=== PATIENT | male | born 1980 | race Two or more races ===

== ENCOUNTER → 2017-01-09 | Outpatient (CLI) | payer OTHER ==
[~2017-01-09] MED LIST: CONC36TA4 PO; CYCL10TA PO
== END ==
LOC: M SMT 08:43
PROVIDERS: ATTEND Nurse Practitioner Women's Health
DX: R68.82 Decreased libido (principal)

== ENCOUNTER 2017-12-02 20:33 | Emergency (ER) | payer OTHER ==
[2017-12-02] MEDS: MORPHINE 4 MG/ML 1ML VIAL/SYRINGE (J2270) IV ×2 (21:21→21:56)
[2017-12-02] MEDS: ONDANSETRON 4MG/2ML VIAL (J2405) IV (21:22)
[2017-12-02] MEDS: NS 1,000 ML IV (21:22)
[2017-12-02 21:34] LABS: BASO % 0.2 % (0.0-1.0); HEMATOCRIT 43.6 % (42.0-52.0); HEMOGLOBIN 15.2 g/dl (13.5-17.5); IMMATURE GRANULOCYTE % 0.3 % (0-3.0); LYMPH # 1.4 10^3/uL (1.5-4.5); LYMPH % 11.6 % (24.0-44.0); MEAN CORPUSCULAR HEMOGLOBIN 32.1 pg (27.0-33.0); MEAN CORPUSCULAR HGB CONC 34.9 g/dl (32.0-36.5); MEAN CORPUSCULAR VOLUME 92.2 fl (80.0-96.0); MONO # 0.4 10^3/uL (0.0-0.8); NEUTROPHILS # 10.3 10^3/uL (1.8-7.7); NEUTROPHILS % 84.9 % (36.0-66.0); PLATELET COUNT, AUTOMATED 307 10^3/uL (150-450); RED BLOOD COUNT 4.73 10^6/uL (4.30-6.10); RED CELL DISTRIBUTION WIDTH 11.8 % (11.5-14.5); WHITE BLOOD COUNT 12.1 10^3/uL (4.0-10.0)
[2017-12-02 21:56] LABS: ALBUMIN 4.5 GM/DL (3.2-5.2); ALBUMIN/GLOBULIN RATIO 1.25 (1.00-1.93); ALKALINE PHOSPHATASE 69 U/L (45-117); ALT/SGPT 34 U/L (12-78); AMYLASE 64 U/L (25-115); ANION GAP 8 MEQ/L (8-16); AST/SGOT 23 U/L (7-37); BILIRUBIN,DIRECT 0.1 MG/DL (0.0-0.2); BILIRUBIN,TOTAL 0.6 MG/DL (0.2-1.0); BLOOD UREA NITROGEN 16 MG/DL (7-18); CARBON DIOXIDE LEVEL 22 MEQ/L (21-32); CHLORIDE LEVEL 110 MEQ/L (98-107); CREATININE FOR GFR 1.69 MG/DL (0.70-1.30); GLOMERULAR FILTRATION RATE 48.6 (>60); GLUCOSE, FASTING 113 MG/DL (70-100); LIPASE 103 U/L (73-393); SODIUM LEVEL 140 MEQ/L (136-145); TOTAL PROTEIN 8.1 GM/DL (6.4-8.2)
[2017-12-02 22:41] LABS: AMORPHOUS SEDIMENT RFX LARGE (NEGATIVE); KETONE, URINE AUTO RFX TRACE mg/dL (NEGATIVE); LEUKOCYTE ESTERASE UR AUTO RFX NEGATIVE (NEGATIVE); MUCUS, URINE RFX SMALL (NEGATIVE); NITRITE, URINE AUTO RFX NEGATIVE (NEGATIVE); RBC, URINE AUTO RFX 90 /HPF (0-3); SPECIFIC GRAVITY UR AUTO RFX 1.013 (1.002-1.035); SQUAM EPITHELIAL CELL UR AURFX 0 /HPF (0-6); WBC, URINE AUTO RFX 3 /HPF (0-3)
[2017-12-02] MEDS: NORCO 5/325MG TABLET (BULK FOR ED) PO (23:03)
[2017-12-02] MEDS: TAMSULOSIN 0.4 MG CAP PO (23:04)
[2017-12-03] MEDS ORDERED: PROPOFOL 200 MG/20 ML VIAL As Ordered (08:11)
== END 2017-12-02 23:06 | disposition home or self-care (01) ==
LOC: M ED 20:33
DX: N20.1 Calculus of ureter (principal); I10 Essential (primary) hypertension; F33.9 Major depressive disorder, recurrent, unspecified; Z79.899 Other long term (current) drug therapy; Z88.8 Allergy status to other drugs, medicaments and biological substances; Z87.891 Personal history of nicotine dependence
CPT/HCPCS: J2270

== ENCOUNTER → 2017-12-09 | Outpatient (CLI) | payer OTHER | LOC: M RAD 15:19 | DX: M54.6 Pain in thoracic spine (principal) | CPT/HCPCS: 72128 ==

== ENCOUNTER 2017-12-13 20:13 | Emergency (ER) | payer OTHER ==
[2017-12-13 21:15] LABS: AMORPHOUS SEDIMENT RFX SMALL (NEGATIVE); KETONE, URINE AUTO RFX NEGATIVE (NEGATIVE); LEUKOCYTE ESTERASE UR AUTO RFX NEGATIVE (NEGATIVE); NITRITE, URINE AUTO RFX NEGATIVE (NEGATIVE); RBC, URINE AUTO RFX 9 /HPF (0-3); SPECIFIC GRAVITY UR AUTO RFX 1.012 (1.002-1.035); SQUAM EPITHELIAL CELL UR AURFX 0 /HPF (0-6); WBC, URINE AUTO RFX 0 /HPF (0-3)
[2017-12-13] MEDS: ONDANSETRON 4MG/2ML VIAL (J2405) IV (22:30)
[2017-12-13] MEDS: MORPHINE 4 MG/ML 1ML VIAL/SYRINGE (J2270) IV ×2 (23:18→23:49)
[2017-12-13 23:26] LABS: BASO # 0.1 10^3/uL (0.0-0.2); BASO % 0.3 % (0.0-1.0); EOS % 0.2 % (0.0-3.0); HEMATOCRIT 39.6 % (42.0-52.0); HEMOGLOBIN 13.7 g/dl (13.5-17.5); IMMATURE GRANULOCYTE % 0.3 % (0-3.0); LYMPH # 1.3 10^3/uL (1.5-4.5); MEAN CORPUSCULAR HEMOGLOBIN 32.2 pg (27.0-33.0); MEAN CORPUSCULAR HGB CONC 34.6 g/dl (32.0-36.5); MONO # 0.6 10^3/uL (0.0-0.8); MONO % 3.9 % (0.0-5.0); NEUTROPHILS # 12.5 10^3/uL (1.8-7.7); NEUTROPHILS % 86.3 % (36.0-66.0); PLATELET COUNT, AUTOMATED 277 10^3/uL (150-450); RED BLOOD COUNT 4.26 10^6/uL (4.30-6.10); RED CELL DISTRIBUTION WIDTH 11.8 % (11.5-14.5); WHITE BLOOD COUNT 14.5 10^3/uL (4.0-10.0)
[2017-12-13 23:46] LABS: ANION GAP 5 MEQ/L (8-16); BLOOD UREA NITROGEN 15 MG/DL (7-18); CALCIUM LEVEL 8.4 MG/DL (8.5-10.1); CARBON DIOXIDE LEVEL 25 MEQ/L (21-32); CHLORIDE LEVEL 111 MEQ/L (98-107); CREATININE FOR GFR 1.55 MG/DL (0.70-1.30); GLOMERULAR FILTRATION RATE 53.7 (>60); GLUCOSE, FASTING 119 MG/DL (70-100); POTASSIUM SERUM 3.9 MEQ/L (3.5-5.1); SODIUM LEVEL 141 MEQ/L (136-145)
[2017-12-14] MEDS: TAMSULOSIN 0.4 MG CAP PO (00:19)
[2017-12-14] MEDS: MORPHINE 2 MG/ML 1ML SYRINGE (J2270) IV (00:20)
[2017-12-14] MEDS: ANEXSIA, NORCO 7.5MG/325MG TABLET(HYDROCODONE/APAP) PO (00:30)
[2017-12-14] MEDS ORDERED: PERCOCET 5MG/325MG TAB PO (01:00)
== END 2017-12-14 00:50 | disposition home or self-care (01) ==
LOC: M ED 12-14 00:50
DX: N20.1 Calculus of ureter (principal); I10 Essential (primary) hypertension; D64.9 Anemia, unspecified; E78.5 Hyperlipidemia, unspecified; F41.9 Anxiety disorder, unspecified; F33.9 Major depressive disorder, recurrent, unspecified; Z79.899 Other long term (current) drug therapy; Z88.5 Allergy status to narcotic agent; Z88.8 Allergy status to other drugs, medicaments and biological substances
CPT/HCPCS: J2270

== ENCOUNTER → 2017-12-17 | Outpatient (REF) | payer OTHER ==
[2017-12-17 19:00] LABS: APPEARANCE, URINE CLOUDY (CLEAR); BACTERIA, URINE AUTO NEGATIVE (NEGATIVE); BILIRUBIN, URINE AUTO NEGATIVE (NEGATIVE); BLOOD, URINE BLOOD NEGATIVE (NEGATIVE); COLOR, URINE YELLOW (YELLOW); GLUCOSE, URINE (UA) AUTO NEGATIVE (NEGATIVE); KETONE, URINE AUTO NEGATIVE (NEGATIVE); LEUKOCYTE ESTERASE, URINE AUTO NEGATIVE (NEGATIVE); MUCUS, URINE SMALL (NEGATIVE); NITRITE, URINE AUTO NEGATIVE (NEGATIVE); PROTEIN, URINE AUTO NEGATIVE (NEGATIVE); RBC, URINE AUTO 2 /HPF (0-3); SPECIFIC GRAVITY URINE AUTO 1.009 (1.002-1.035); SQUAMOUS EPITHELIAL CELL UR AU 0 /HPF (0-6); UROBILINOGEN, URINE AUTO 0.2 mg/dL (0.0-2.0); WBC, URINE AUTO 4 /HPF (0-3)
== END ==
LOC: M SMT 17:43
DX: N13.2 Hydronephrosis with renal and ureteral calculous obstruction (principal); Z01.818 Encounter for other preprocedural examination

== ENCOUNTER → 2017-12-17 | Outpatient (CLI) | payer OTHER ==
[2017-12-17 18:12] LABS: HEMOGLOBIN 13.8 g/dl (13.5-17.5); MEAN CORPUSCULAR HGB CONC 33.7 g/dl (32.0-36.5); MEAN CORPUSCULAR VOLUME 95.1 fl (80.0-96.0); PLATELET COUNT, AUTOMATED 325 10^3/uL (150-450); RED BLOOD COUNT 4.31 10^6/uL (4.30-6.10); RED CELL DISTRIBUTION WIDTH 11.9 % (11.5-14.5); WHITE BLOOD COUNT 6.7 10^3/uL (4.0-10.0)
[2017-12-17 18:22] LABS: INR 0.92; PROTHROMBIN TIME 12.4 SECONDS (12.4-14.5)
[2017-12-17 18:23] LABS: PARTIAL THROMBOPLASTIN TIME 34.4 SECONDS (26.8-37.9)
[2017-12-17 18:49] LABS: ANION GAP 7 MEQ/L (8-16); BLOOD UREA NITROGEN 14 MG/DL (7-18); CARBON DIOXIDE LEVEL 25 MEQ/L (21-32); CHLORIDE LEVEL 110 MEQ/L (98-107); CREATININE FOR GFR 1.19 MG/DL (0.70-1.30); GLOMERULAR FILTRATION RATE > 60.0 (>60); GLUCOSE, FASTING 100 MG/DL (70-100); POTASSIUM SERUM 4.2 MEQ/L (3.5-5.1); SODIUM LEVEL 142 MEQ/L (136-145)
== END ==
LOC: M SMT 14:44
DX: Z01.818 Encounter for other preprocedural examination (principal); N13.2 Hydronephrosis with renal and ureteral calculous obstruction
CPT/HCPCS: 80048

== ENCOUNTER 2017-12-18 08:38 | Day surgery (SDC) | payer OTHER ==
[2017-12-18] MEDS ORDERED: BACTRIM 160MG/800MG DS TAB PO (09:00)
[2017-12-18] MEDS ORDERED: MIDAZOLAM INJ 2 MG/2 ML VIAL (J2250) As Ordered (09:25)
[2017-12-18] MEDS ORDERED: fentaNYL 100 MCG/2 ML INJECTION (J3010) As Ordered (09:25)
[2017-12-18] MEDS ORDERED: LIDOCAINE 2% INJ 100 MG/5 ML SDV (FOR ANES.) As Ordered (09:26)
[2017-12-18] MEDS ORDERED: PROPOFOL 200 MG/20 ML VIAL As Ordered (09:26)
[2017-12-18] MEDS ORDERED: KETOROLAC 60 MG/2 ML VIAL (J1885) As Ordered (09:44)
[2017-12-18] MEDS ORDERED: dexameTHASONE 4 MG/ML 1ML VIAL (J1100) As Ordered (09:44)
[2017-12-18] MEDS ORDERED: ONDANSETRON 4MG/2ML VIAL (J2405) As Ordered (09:44)
[2017-12-18] MEDS ORDERED: CONRAY-60 60% 50ML VIAL (Q9961) As Ordered (10:01)
[2017-12-18] MEDS ORDERED: NORCO, ANEXSIA 5/325MG TABLET (HYDROcodone/ACETAMINOPHEN) As Ordered (11:34)
[2017-12-18] MEDS: NORCO, ANEXSIA 5/325MG TABLET (HYDROcodone/ACETAMINOPHEN) PO ×2 (11:35→12:30)
[2017-12-18] MEDS ORDERED: fentaNYL 100 MCG/2 ML INJECTION (J3010) IV (12:00)
[2017-12-18] MEDS ORDERED: ONDANSETRON 4MG/2ML VIAL (J2405) IV (12:00)
[2017-12-18] MEDS ORDERED: LR 1,000 ML IV (12:00)
== END 2017-12-18 13:52 | disposition home or self-care (01) ==
LOC: M SDC 13:52
DX: N20.1 Calculus of ureter (principal); N20.0 Calculus of kidney; E78.00 Pure hypercholesterolemia, unspecified; I10 Essential (primary) hypertension; J45.909 Unspecified asthma, uncomplicated; G47.30 Sleep apnea, unspecified; F43.10 Post-traumatic stress disorder, unspecified; Z79.899 Other long term (current) drug therapy
CPT/HCPCS: 52356

== ENCOUNTER 2017-12-24 06:55 | Day surgery (SDC) | payer OTHER ==
[2017-12-24] MEDS ORDERED: PROPOFOL 500 MG/50 ML VIAL As Ordered (07:45)
[2017-12-24] MEDS ORDERED: LIDOCAINE 2% INJ 100 MG/5 ML SDV (FOR ANES.) As Ordered (07:45)
[2017-12-24] MEDS ORDERED: MIDAZOLAM INJ 2 MG/2 ML VIAL (J2250) As Ordered (07:46)
[2017-12-24] MEDS ORDERED: fentaNYL 100 MCG/2 ML INJECTION (J3010) As Ordered (07:46)
[2017-12-24] MEDS ORDERED: ceFAZolin 2 GM/D5W 50 ML IV BAG (J0690 PER 500MG) As Ordered (08:14)
[2017-12-24] MEDS ORDERED: ePHEDrine SULFATE 25 MG/5 ML(5MG/ML) SYRINGE As Ordered (08:44)
[2017-12-24] MEDS ORDERED: NORCO, ANEXSIA 5/325MG TABLET (HYDROcodone/ACETAMINOPHEN) As Ordered (10:34)
[2017-12-24] MEDS: NORCO, ANEXSIA 5/325MG TABLET (HYDROcodone/ACETAMINOPHEN) PO (10:34)
[2017-12-24] MEDS ORDERED: NORCO, ANEXSIA 5/325MG TABLET (HYDROcodone/ACETAMINOPHEN) PO (10:45)
== END 2017-12-24 11:20 | disposition home or self-care (01) ==
LOC: M SDC 06:55
DX: N20.0 Calculus of kidney (principal); I10 Essential (primary) hypertension; E78.5 Hyperlipidemia, unspecified; J45.909 Unspecified asthma, uncomplicated; G47.33 Obstructive sleep apnea (adult) (pediatric); J30.9 Allergic rhinitis, unspecified; Z88.5 Allergy status to narcotic agent; Z88.6 Allergy status to analgesic agent; Z91.013 Allergy to seafood; Z79.899 Other long term (current) drug therapy
CPT/HCPCS: 50590

== ENCOUNTER → 2018-01-19 | Outpatient (CLI) | payer OTHER | LOC: M SMT 10:20 | DX: N20.0 Calculus of kidney (principal) | CPT/HCPCS: 52310 ==

== ENCOUNTER → 2018-04-21 | Outpatient (REF) | payer OTHER ==
[2018-04-21 14:10] LABS: APPEARANCE, URINE CLEAR (CLEAR); BACTERIA, URINE AUTO NEGATIVE (NEGATIVE); BILIRUBIN, URINE AUTO NEGATIVE (NEGATIVE); BLOOD, URINE BLOOD NEGATIVE (NEGATIVE); COLOR, URINE YELLOW (YELLOW); GLUCOSE, URINE (UA) AUTO NEGATIVE (NEGATIVE); KETONE, URINE AUTO NEGATIVE (NEGATIVE); LEUKOCYTE ESTERASE, URINE AUTO NEGATIVE (NEGATIVE); MUCUS, URINE SMALL (NEGATIVE); NITRITE, URINE AUTO NEGATIVE (NEGATIVE); PROTEIN, URINE AUTO NEGATIVE (NEGATIVE); RBC, URINE AUTO 0 /HPF (0-3); SPECIFIC GRAVITY URINE AUTO 1.009 (1.002-1.035); SQUAMOUS EPITHELIAL CELL UR AU 0 /HPF (0-6); UROBILINOGEN, URINE AUTO 0.2 mg/dL (0.0-2.0); WBC, URINE AUTO 0 /HPF (0-3)
== END ==
LOC: M SMT 13:38
DX: N20.0 Calculus of kidney (principal)

== ENCOUNTER → 2018-04-26 | Outpatient (CLI) | payer OTHER | LOC: M RAD 08:13 | DX: N13.1 Hydronephrosis with ureteral stricture, not elsewhere classified (principal) | CPT/HCPCS: 74176 ==

== ENCOUNTER → 2018-05-05 | Outpatient (CLI) | payer OTHER ==
[2018-05-05 13:44] LABS: HEMATOCRIT 41.3 % (42.0-52.0); HEMOGLOBIN 13.8 g/dl (13.5-17.5); MEAN CORPUSCULAR HEMOGLOBIN 31.7 pg (27.0-33.0); MEAN CORPUSCULAR HGB CONC 33.4 g/dl (32.0-36.5); MEAN CORPUSCULAR VOLUME 94.9 fl (80.0-96.0); PLATELET COUNT, AUTOMATED 335 10^3/uL (150-450); RED BLOOD COUNT 4.35 10^6/uL (4.30-6.10); RED CELL DISTRIBUTION WIDTH 11.5 % (11.5-14.5); WHITE BLOOD COUNT 5.5 10^3/uL (4.0-10.0)
[2018-05-05 13:52] LABS: BLOOD UREA NITROGEN 10 MG/DL (7-18); CARBON DIOXIDE LEVEL 29 MEQ/L (21-32); CHLORIDE LEVEL 108 MEQ/L (98-107); CREATININE FOR GFR 1.07 MG/DL (0.70-1.30); GLOMERULAR FILTRATION RATE > 60.0 (>60); GLUCOSE, FASTING 89 MG/DL (70-100); POTASSIUM SERUM 4.1 MEQ/L (3.5-5.1); SODIUM LEVEL 142 MEQ/L (136-145)
[2018-05-05 13:53] LABS: ANION GAP 5 MEQ/L (8-16); CALCIUM LEVEL 8.6 MG/DL (8.5-10.1)
[2018-05-05 14:04] LABS: INR 0.96; PROTHROMBIN TIME 12.9 SECONDS (12.1-14.4)
[2018-05-05 14:05] LABS: APPEARANCE, URINE CLEAR (CLEAR); BACTERIA, URINE AUTO NEGATIVE (NEGATIVE); BILIRUBIN, URINE AUTO NEGATIVE (NEGATIVE); BLOOD, URINE BLOOD NEGATIVE (NEGATIVE); COLOR, URINE YELLOW (YELLOW); GLUCOSE, URINE (UA) AUTO NEGATIVE (NEGATIVE); KETONE, URINE AUTO NEGATIVE (NEGATIVE); LEUKOCYTE ESTERASE, URINE AUTO NEGATIVE (NEGATIVE); MUCUS, URINE SMALL (NEGATIVE); NITRITE, URINE AUTO NEGATIVE (NEGATIVE); PARTIAL THROMBOPLASTIN TIME 34.5 SECONDS (25.4-37.6); PROTEIN, URINE AUTO NEGATIVE (NEGATIVE); RBC, URINE AUTO 0 /HPF (0-3); SPECIFIC GRAVITY URINE AUTO 1.009 (1.002-1.035); SQUAMOUS EPITHELIAL CELL UR AU 0 /HPF (0-6); UROBILINOGEN, URINE AUTO 0.2 mg/dL (0.0-2.0); WBC, URINE AUTO 2 /HPF (0-3)
== END ==
LOC: M SMT 09:15
DX: Z01.818 Encounter for other preprocedural examination (principal); N20.0 Calculus of kidney
CPT/HCPCS: 80048

== ENCOUNTER 2018-05-10 10:51 | Day surgery (SDC) | payer OTHER ==
[2018-05-10] MEDS ORDERED: ceFAZolin 2 GM/D5W 50 ML IV BAG (J0690 PER 500MG) As Ordered (11:09)
[2018-05-10] MEDS: LR 1,000 ML IV (11:20)
[2018-05-10] MEDS ORDERED: ONDANSETRON 4MG/2ML VIAL (J2405) As Ordered (11:37)
[2018-05-10] MEDS ORDERED: MIDAZOLAM INJ 2 MG/2 ML VIAL (J2250) As Ordered (11:37)
[2018-05-10] MEDS ORDERED: dexameTHASONE 4 MG/ML 1ML VIAL (J1100) As Ordered (11:37)
[2018-05-10] MEDS ORDERED: PROPOFOL 200 MG/20 ML VIAL As Ordered ×2 (11:37→14:40)
[2018-05-10] MEDS ORDERED: LIDOCAINE 2% INJ 100 MG/5 ML SDV (FOR ANES.) As Ordered (11:37)
[2018-05-10] MEDS ORDERED: fentaNYL 100 MCG/2 ML INJECTION (J3010) As Ordered (11:38)
[2018-05-10] MEDS: CONRAY-60 60% 50ML VIAL (Q9961) As Ordered (13:27)
[2018-05-10] MEDS ORDERED: fentaNYL 100 MCG/2 ML INJECTION (J3010) IV (15:30)
[2018-05-10] MEDS ORDERED: MEPERIDINE INJ 25 MG/ML VIAL (J2175) IV (15:30)
[2018-05-10] MEDS ORDERED: METOCLOPRAMIDE INJ 10MG/2ML VIAL (J2765) IV (15:30)
[2018-05-10] MEDS ORDERED: KETOROLAC 30 MG/ML VIAL (J1885) IV (15:30)
[2018-05-10] MEDS ORDERED: NORCO, ANEXSIA 5/325MG TABLET (HYDROcodone/ACETAMINOPHEN) PO ×2 (15:30)
[2018-05-10] MEDS ORDERED: ONDANSETRON 4MG/2ML VIAL (J2405) IV (15:30)
[2018-05-10] MEDS ORDERED: LR 1,000 ML IV (15:30)
== END 2018-05-10 16:25 | disposition home or self-care (01) ==
LOC: M SDC 10:51
DX: N20.0 Calculus of kidney (principal); I10 Essential (primary) hypertension; F41.9 Anxiety disorder, unspecified; F32.9 Major depressive disorder, single episode, unspecified; Z88.8 Allergy status to other drugs, medicaments and biological substances; Z87.891 Personal history of nicotine dependence; G47.30 Sleep apnea, unspecified; J45.909 Unspecified asthma, uncomplicated; Z79.899 Other long term (current) drug therapy
CPT/HCPCS: 52356

== ENCOUNTER → 2019-10-10 | Outpatient (REF) | payer OTHER ==
[~2019-10-10] MED LIST changes: +ACET1TAB55 PO; +ATOM40CA; +BOTO10VL IM; +BOTO200I; +CETI10TA PO; +CONC27TA4 PO; +DULO1CAP6 PO; +EPIP0.3I2 IM; +FISH1000 PO; +FLOM0.4C39 PO; +FLUT22IN INH; +HYDR-3715 PO; +KETO0.02; +KETO0.02 OU; +MAXA10TA14 PO; +OXYB-54 PO; +PERC5TAB12 PO; +PRAZ5CAP PO; +PROAAER10; +REFR0.1D; +RIZA5TAB52; +SILD50TA; +TIZA4CAP PO; +TIZA4CAP6 PO; +TIZA6CAP PO; +TOPI200T7; +TRAZ-257 PO; +VALS40TA9 PO; +ZOFR4TAB14 PO
[2019-10-10 18:21] LABS: BASO % 0.5 % (0.0-1.0); EOS # 0.2 10^3/uL (0.0-0.5); EOS % 2.3 % (0.0-3.0); HEMATOCRIT 48.6 % (42.0-52.0); HEMOGLOBIN 16.7 g/dl (13.5-17.5); LYMPH # 3.8 10^3/uL (1.5-5.0); LYMPH % 47.6 % (24.0-44.0); MEAN CORPUSCULAR HEMOGLOBIN 31.7 pg (27.0-33.0); MEAN CORPUSCULAR HGB CONC 34.4 g/dl (32.0-36.5); MEAN CORPUSCULAR VOLUME 92.4 fl (80.0-96.0); MONO # 0.5 10^3/uL (0.0-0.8); MONO % 6.5 % (0.0-5.0); NEUTROPHILS # 3.4 10^3/uL (1.5-8.5); NEUTROPHILS % 42.8 % (36.0-66.0); PLATELET COUNT, AUTOMATED 327 10^3/uL (150-450); RED BLOOD COUNT 5.26 10^6/uL (4.30-6.10); WHITE BLOOD COUNT 7.9 10^3/uL (4.0-10.0)
[2019-10-10 18:22] LABS: ALBUMIN 4.3 GM/DL (3.2-5.2); ALT/SGPT 113 U/L (12-78); BILIRUBIN,TOTAL 0.6 MG/DL (0.2-1.0); BLOOD UREA NITROGEN 13 MG/DL (7-18); C REACTIVE PROTEIN QUANTITATIV < 0.30 MG/DL (0.00-0.30); CALCIUM LEVEL 9.5 MG/DL (8.5-10.1); CARBON DIOXIDE LEVEL 31 MEQ/L (21-32); CHLORIDE LEVEL 104 MEQ/L (98-107); CREATININE FOR GFR 1.13 MG/DL (0.70-1.30); GLOMERULAR FILTRATION RATE > 60.0 (>60); GLUCOSE, FASTING 74 MG/DL (70-100); POTASSIUM SERUM 4.3 MEQ/L (3.5-5.1); SODIUM LEVEL 138 MEQ/L (136-145); URIC ACID 6.4 MG/DL (3.5-7.2)
[2019-10-10 19:00] LABS: ERYTHROCYTE SEDIMENTATION RATE 4 mm/hr (0-15)
== END ==
LOC: M SFHCRHEU 12:38
PROVIDERS: ATTEND Internal Medicine
DX: M25.50 Pain in unspecified joint (principal)
CPT/HCPCS: 36415; 80053; 84550; 85025; 85652; 86140; G0463

== ENCOUNTER → 2021-02-13 | Outpatient (REF) | payer OTHER ==
[~2021-02-13] MED LIST changes: -ATOM40CA; +ATOM40CA16; +CYCL-707 PO; -CYCL10TA PO
[2021-02-13 13:17] LABS: APPEARANCE, URINE CLEAR (CLEAR); BACTERIA, URINE AUTO NEGATIVE (NEGATIVE); BILIRUBIN, URINE AUTO NEGATIVE (NEGATIVE); BLOOD, URINE BLOOD NEGATIVE (NEGATIVE); COLOR, URINE YELLOW (YELLOW); GLUCOSE, URINE (UA) AUTO NEGATIVE (NEGATIVE); KETONE, URINE AUTO NEGATIVE (NEGATIVE); LEUKOCYTE ESTERASE, URINE AUTO NEGATIVE (NEGATIVE); NITRITE, URINE AUTO NEGATIVE (NEGATIVE); PROTEIN, URINE AUTO NEGATIVE (NEGATIVE); RBC, URINE AUTO 0 /HPF (0-3); SPECIFIC GRAVITY URINE AUTO 1.013 (1.002-1.035); SQUAMOUS EPITHELIAL CELL UR AU 0 /HPF (0-6); UROBILINOGEN, URINE AUTO 0.2 mg/dL (0.0-2.0); WBC, URINE AUTO 0 /HPF (0-3)
[2021-02-13 14:46] LABS: GC DNA AMPLIFICATION NEGATIVE (NEGATIVE)
== END ==
LOC: M SMT 13:06
PROVIDERS: ATTEND Nurse Practitioner Family
DX: N50.819 Testicular pain, unspecified (principal)

== ENCOUNTER → 2022-03-20 | Outpatient (CLI) | payer MEDICARE, OTHER ==
[2022-03-20 14:28] LABS: ALT/SGPT 114 U/L (12-78); BILIRUBIN,DIRECT 0.1 MG/DL (0.0-0.2); BILIRUBIN,TOTAL 0.5 MG/DL (0.2-1.0); IRON (FE) 85 UG/DL (65-175); PERCENT SATURATION 27.7 % (19.7-50.0); TOTAL IRON BINDING CAPACITY 307 UG/DL (250-450); TOTAL PROTEIN 7.8 GM/DL (6.4-8.2)
[2022-03-20 15:24] LABS: HEPATITIS B SURFACE ANTIGEN NEGATIVE (NEGATIVE)
[2022-03-20 15:51] LABS: HEPATITIS B CORE ANTIBODY IGM NEGATIVE (NEGATIVE)
== END ==
LOC: M LAB 13:06
PROVIDERS: ATTEND Internal Medicine Gastroenterology
DX: R74.8 Abnormal levels of other serum enzymes (principal)

== ENCOUNTER → 2022-04-10 | Outpatient (CLI) | payer MEDICARE, OTHER ==
[~2022-04-10] MED LIST changes: +ADV500INH INH; +CONC54TA4 PO; +EZET10TA21 PO; +GABA800T4 PO; -MAXA10TA14 PO; +OMEG10002 PO; +RIZA10TA64 PO; +ROSU20TA5 PO; +VITA1CAP25 PO
== END ==
LOC: M LABSMTC 10:41
PROVIDERS: ATTEND Anesthesiology
DX: Z01.812 Encounter for preprocedural laboratory examination (principal)

== ENCOUNTER 2022-04-15 09:45 | Day surgery (SDC) | payer MEDICARE, OTHER ==
[~2022-04-15] VITALS: Ht 165.1 cm; Wt 90.2 kg
[~2022-04-15 09:45] MED LIST changes: +NS 1,000 ML IV ONE
[2022-04-15] MEDS ORDERED: fentaNYL 100 MCG/2 ML INJECTION As Ordered ONE (11:24)
[2022-04-15] MEDS ORDERED: propofoL 500 MG/50 ML VIAL As Ordered ONE (11:24)
[2022-04-15] MEDS ORDERED: LIDOCAINE 2% 100MG/5ML SDV (FOR ANES.) As Ordered ONE (11:24)
[2022-04-15 12:20] VITALS: BP 130/88
== END 2022-04-15 12:29 | disposition home or self-care (01) ==
LOC: M OPP 09:45
PROVIDERS: ATTEND Internal Medicine Gastroenterology
DX: K64.8 Other hemorrhoids (principal); R10.31 Right lower quadrant pain; K30 Functional dyspepsia; R74.8 Abnormal levels of other serum enzymes; K59.00 Constipation, unspecified; Z79.02 Long term (current) use of antithrombotics/antiplatelets; Z79.51 Long term (current) use of inhaled steroids; Z79.52 Long term (current) use of systemic steroids; Z79.899 Other long term (current) drug therapy; Z99.89 Dependence on other enabling machines and devices; Z88.5 Allergy status to narcotic agent; Z88.6 Allergy status to analgesic agent; Z91.013 Allergy to seafood; Z91.048 Other nonmedicinal substance allergy status; G47.30 Sleep apnea, unspecified; I10 Essential (primary) hypertension; G43.909 Migraine, unspecified, not intractable, without status migrainosus; F43.10 Post-traumatic stress disorder, unspecified; F32.9 Major depressive disorder, single episode, unspecified; F41.9 Anxiety disorder, unspecified; Z96.82 Presence of neurostimulator; Z87.891 Personal history of nicotine dependence
CPT/HCPCS: 43239; 45378; 88305; J3010

== ENCOUNTER → 2023-06-02 | Outpatient (CLI) | payer OTHER ==
[~2023-06-02] MED LIST changes: -KETO0.02; -KETO0.02 OU; +KETO5DRO33; +KETO5DRO33 OU; -NS 1,000 ML IV ONE; -ROSU20TA5 PO; +ROSU20TA61 PO
== END ==
LOC: M RAD 15:40
PROVIDERS: ATTEND Nurse Practitioner Family
DX: M54.59 Other low back pain (principal)

== ENCOUNTER 2023-12-10 15:41 | Emergency (ER) | payer OTHER ==
[~2023-12-10] VITALS: Ht 162.6 cm; Wt 90.9 kg
[~2023-12-10 15:41] MED LIST changes: +TIZA4CAP3 PO; -TIZA4CAP6 PO
[2023-12-10] MEDS ORDERED: methylPREDNISolone 125MG 2ML VIAL IV ONE (20:10)
[2023-12-10] MEDS: methocarbamoL 500 MG TAB PO ONE (20:24)
[2023-12-10] MEDS: methylPREDNISolone 125MG 2ML VIAL IM ONE (20:24)
[2023-12-10] MEDS ORDERED: PRED20TA PO (23:34)
[2023-12-10] MEDS ORDERED: METH-1164 PO (23:34)
[2023-12-10 23:41] VITALS: BP 131/91; TEMP 97.6; O2SAT 97
== END 2023-12-11 00:06 | disposition home or self-care (01) ==
LOC: M ED 15:41
DX: M54.50 Low back pain, unspecified (principal); I10 Essential (primary) hypertension; E78.5 Hyperlipidemia, unspecified; J45.909 Unspecified asthma, uncomplicated; Z88.8 Allergy status to other drugs, medicaments and biological substances; Z79.1 Long term (current) use of non-steroidal anti-inflammatories (NSAID); Z79.51 Long term (current) use of inhaled steroids; Z79.52 Long term (current) use of systemic steroids; Z79.899 Other long term (current) drug therapy
CPT/HCPCS: 72131; 96372; 99284; J2919